=== PATIENT | female | born 1940 | race Caucasian/White ===

== ENCOUNTER 2016-10-25 15:30 | Inpatient (IN) | payer MEDICARE, OTHER ==
[2016-10-25 18:18] VITALS: BMI 71.1
[2016-10-25] MEDS ORDERED: ONDANSETRON HCL 4 MG TAB.RAPDIS PO PRN (18:38)
--- NOTE | 2016-10-25 18:46 | History and Physical Report ---
History of Present Illnes - History of Present Illness Reason for Visit: Peritonitis/sigmoid colectomy History of Present Illness: This michael a 76 year old female who presented to the ER on 09/29/16 at [facility] with a perforated sigmoid diverticulum with associated abcess formation necessitating a sigmoid colectomy and right oophorectomy due to abcess involving the right tube and ovary. Irrigation was performed, and a diverting colostomy was placed by Dr. Charles. Her ostomy is functioning well currently and she is becoming more and more comfortable with it. She did have a midline dehiscence which is being treated with daily packing. Her pain is well controlled currently. - Past Medical History Cardiac: denies: AFIB, CAD Pulmonary: denies: Asthma, Bronchitis COOK FAST FOOD: denies: Carpal Tunnel Syndrome Gastrointestinal: Other (recent sigmoid colectomy for diverticular rupture). denies: Constipation Heme/Onc: denies: Anemia NOS Hepatobiliary: denies: Cirrhosis Psych: Depression. denies: Anxiety Rheumatologic: denies: Fibromyalgia Infectious Disease: denies: Bacterial vaginosis ENT: denies: Sinusitis Renal/: denies: Chronic renal insuff Endocrine: denies: Diabetes Dermatology: denies: Eczema - Past Surgical History Past Surgical History: Other (Diverting colostomy 09/29/16, ) - Past Social History Smoke: No Alcohol: None Drugs: None Lives: With Family Domestic Violence: Negative - Health Maintenance Health Maintenance: Cholesterol Influenza Vaccine: Current for this Influenza Season Pneumonia Vaccine: Yes Resuscitation Status: Resusciation Status Resuscitation Status Full Code Review of Systems - Review of Systems Constitutional: negative: Fever, Chills Eyes: negative: pain ENT: negative: Ear Pain Respiratory: negative: Cough, Dry Cardiovascular: negative: Chest Pain Gastrointestinal: negative: Nausea, Vomiting Genitourinary: negative: Dysuria Musculoskeletal: negative: Neck Pain, Shoulder Pain, Foot Pain Skin: negative: Rash Neurological: Weakness, Incoordination. negative: Confusion - Medications/Allergies Current Inpatient Medications: Current Inpatient Medications Acetaminophen (Tylenol) 650 mg PO Q4H PRN PRN Reason: Fever >101 Albuterol/Ipratropium (Duoneb) 3 ml NEB QID [facility] Enoxaparin Sodium (Lovenox) 30 mg SQ QD [facility] Stop: 11/07/16 19:01 Escitalopram Oxalate (Lexapro) 10 mg PO DAILY [facility] Megestrol Acetate (Megace) 40 mg PO DAILY [facility] Ondansetron HCl (Zofran Odt) 4 mg PO Q6H PRN PRN Reason: Nausea / Vomiting Pantoprazole Sodium (Protonix) 40 mg PO 0700 [facility] Simethicone (Gas-X) 80 mg PO QID [facility] Exam - Exam General: Alert (Pleasant alert 76 year old female who appears younger), Oriented to Person, Oriented to Place, Oriented to Time HEENT: Atraumatic, PERRLA Neck: No: Stridor, Rigidity Lungs: Clear to auscultation, Normal air movement, Speaks full Sentences Cardiovascular: Regular rate, Normal S1, Normal S2 Murmur: No: Systolic Murmur Murmur Location: No: [place] Abdomen: Normal bowel sounds, Soft, No tenderness, Other (Diverting colostomy is noted. It appears to be functioning well. Midline incisional dehiscence is noted and packed) Genitourinary: No: Right Inguinal Hernia Male Genitourinary: No: Scrotal Edema Female Genitourinary: No: Prolapse Integumentary: Normal, [place], Warm Extremities: No clubbing, No cyanosis Neurological: Normal gait, Normal speech Psych/Mental Status: Mental status NL Assessment/Plan - Assessment/Plan (1) Abdominal abscess Status: Acute Current Visit: Yes Assessment: S/P colostomy formation (2) Colostomy care Status: Acute Current Visit: Yes Assessment: Colostomy teaching (3) Weakness Status: Acute Current Visit: Yes Assessment: PT/OT consults VTE Assessment - RISK FACTOR SCORE VTE RISK FACTOR SCORES: AGE OVER 60 YEARS, ANTICIPATED BED CONFINEMENT OR IMMOBILIZATION > 24 HOURS - RISK VTE MODERATE RISK: SCORE OF 2 (RISK PROXIMAL DVT 2-4%) PROPHYAXIS NEEDED (on lovenox/MARGARITA hose)
[2016-10-25] MEDS: ENOXAPARIN SODIUM 30 MG/0.3 ML DISP.SYRIN SQ SCH (21:36)
[2016-10-25] MEDS: SIMETHICONE 80 MG TAB.CHEW PO SCH (21:36)
[2016-10-25] MEDS: IPRATROPIUM/ALBUTEROL SULFATE 3 ML AMPUL.NEB NEB SCH (23:06)
[2016-10-25] MEDS: ACETAMINOPHEN 325 MG TABLET PO PRN (23:07)
[2016-10-26] MEDS: PANTOPRAZOLE SODIUM 40 MG TABLET PO SCH (06:00)
[2016-10-26 07:04] LABS: MEAN CORPUSCULAR HEMOGLOBIN 28.4 pg (28.0-34.0)
[2016-10-26 07:22] LABS: eGFR (African) > 60; eGFR (Non-African) > 60
[2016-10-26] MEDS: ESCITALOPRAM OXALATE 10 MG TABLET PO SCH (08:40)
[2016-10-26] MEDS: SIMETHICONE 80 MG TAB.CHEW PO SCH ×5 (08:41→20:50)
[2016-10-26] MEDS: IPRATROPIUM/ALBUTEROL SULFATE 3 ML AMPUL.NEB NEB SCH ×4 (09:08→20:39)
[2016-10-26] MEDS: MEGESTROL ACETATE 40 MG/ML PO SCH (16:35)
[2016-10-26] MEDS: ENOXAPARIN SODIUM 30 MG/0.3 ML DISP.SYRIN SQ SCH (18:10)
[2016-10-26] MEDS: ACETAMINOPHEN 325 MG TABLET PO PRN (20:51)
[2016-10-27] MEDS: PANTOPRAZOLE SODIUM 40 MG TABLET PO SCH (06:49)
[2016-10-27] MEDS: SIMETHICONE 80 MG TAB.CHEW PO SCH ×4 (09:02→20:56)
[2016-10-27] MEDS: ESCITALOPRAM OXALATE 10 MG TABLET PO SCH (09:03)
[2016-10-27] MEDS: MEGESTROL ACETATE 40 MG/ML PO SCH (09:09)
[2016-10-27] MEDS: IPRATROPIUM/ALBUTEROL SULFATE 3 ML AMPUL.NEB NEB SCH ×4 (09:15→22:11)
[2016-10-27] MEDS: ENOXAPARIN SODIUM 30 MG/0.3 ML DISP.SYRIN SQ SCH (18:35)
[2016-10-28] MEDS: PANTOPRAZOLE SODIUM 40 MG TABLET PO SCH (05:53)
[2016-10-28] MEDS: IPRATROPIUM/ALBUTEROL SULFATE 3 ML AMPUL.NEB NEB SCH ×4 (08:41→22:08)
[2016-10-28] MEDS: SIMETHICONE 80 MG TAB.CHEW PO SCH ×4 (08:50→21:33)
[2016-10-28] MEDS: MEGESTROL ACETATE 40 MG/ML PO SCH (08:51)
[2016-10-28] MEDS: ESCITALOPRAM OXALATE 10 MG TABLET PO SCH (08:51)
[2016-10-28] MEDS: ENOXAPARIN SODIUM 30 MG/0.3 ML DISP.SYRIN SQ SCH (18:22)
[2016-10-29] MEDS: PANTOPRAZOLE SODIUM 40 MG TABLET PO SCH (05:52)
[2016-10-29] MEDS: ESCITALOPRAM OXALATE 10 MG TABLET PO SCH (08:42)
[2016-10-29] MEDS: SIMETHICONE 80 MG TAB.CHEW PO SCH ×4 (08:42→20:20)
[2016-10-29] MEDS: MEGESTROL ACETATE 40 MG/ML PO SCH (08:42)
[2016-10-29] MEDS: IPRATROPIUM/ALBUTEROL SULFATE 3 ML AMPUL.NEB NEB SCH ×4 (09:01→21:06)
[2016-10-29] MEDS ORDERED: SIMETHICONE 80 MG TAB.CHEW ONE (16:20)
[2016-10-29] MEDS ORDERED: ENOXAPARIN SODIUM 30 MG/0.3 ML DISP.SYRIN SQ ONE (16:20)
[2016-10-29] MEDS ORDERED: IPRATROPIUM/ALBUTEROL SULFATE 3 ML AMPUL.NEB NEB ONE (16:21)
[2016-10-29] MEDS: ENOXAPARIN SODIUM 30 MG/0.3 ML DISP.SYRIN SQ SCH (18:36)
[2016-10-30] MEDS: PANTOPRAZOLE SODIUM 40 MG TABLET PO SCH (06:26)
[2016-10-30] MEDS: IPRATROPIUM/ALBUTEROL SULFATE 3 ML AMPUL.NEB NEB SCH ×4 (08:41→21:32)
[2016-10-30] MEDS: ESCITALOPRAM OXALATE 10 MG TABLET PO SCH (09:05)
[2016-10-30] MEDS: MEGESTROL ACETATE 40 MG/ML PO SCH (09:05)
[2016-10-30] MEDS: SIMETHICONE 80 MG TAB.CHEW PO SCH ×4 (09:05→19:57)
[2016-10-30] MEDS: ENOXAPARIN SODIUM 30 MG/0.3 ML DISP.SYRIN SQ SCH (18:15)
[2016-10-30] MEDS ORDERED: IPRATROPIUM/ALBUTEROL SULFATE 3 ML AMPUL.NEB NEB PRN (21:31)
[2016-10-31] MEDS: PANTOPRAZOLE SODIUM 40 MG TABLET PO SCH (05:47)
[2016-10-31] MEDS: MEGESTROL ACETATE 40 MG/ML PO SCH (08:33)
[2016-10-31] MEDS: SIMETHICONE 80 MG TAB.CHEW PO SCH ×4 (08:33→21:00)
[2016-10-31] MEDS: ESCITALOPRAM OXALATE 10 MG TABLET PO SCH (08:33)
--- NOTE | 2016-10-31 15:51 | Inpatient Progress Note ---
Subjective - Required Recertification Statement I anticipate X number of days because-include discharge plan: 7 - Review of Systems Events since last encounter: Dora is doing very well with therapy. She says that she is more comfortable with her ostomy, and it seems to be functioning well, even with advancement to full diet. She is not needing any pain medication currently. General: Denies: Chills HEENT: Denies: Head Aches Pulmonary: Denies: Dyspnea, Cough Cardiovascular: Denies: Chest Pain Gastrointestinal: Denies: Nausea, Vomiting Genitourinary: Denies: Dysuria, Frequency Musculoskeletal: Denies: Neck Pain Neurological: Weakness. Denies: Change in Speech, Confusion Objective - Exam Vitals and I&O: Vital Signs Temp 100.1 F H 10/31/16 09:00 Pulse 84 10/31/16 09:00 Resp 16 10/31/16 09:00 BP 131/72 10/31/16 09:00 Pulse Ox 94 10/31/16 09:00 Intake & Output 10/30/16 10/31/16 10/31/16 23:59 11:59 23:59 Intake Total 960 360 Balance 960 360 Intake: Oral 960 360 Other: Voiding Method Toilet # Voids 1 2 General: Alert, Oriented to Person, Oriented to Place, Oriented to Time, No acute distress HEENT: Atraumatic, PERRLA, EOMI Neck: Supple, No JVD Lungs: Clear to auscultation, Normal air movement, Speaks full Sentences Cardiovascular: Regular rate, Normal S1, Normal S2 Abdomen: Normal bowel sounds, Other (ostomy is functioning well) Extremities: Other (2+ edema) Neurological: Normal speech, Strength Equal Bilat, Generalized Weakness ( improved). No: Right Sided Weakness, Left Sided Weakness Psych/Mental Status: Mental status NL - Results Results: Laboratory Results WBC 10.00 K/ul (4.00-12.00) 10/26/16 06:40 RBC 3.40 M/ul (3.90-5.20) L 10/26/16 06:40 Hgb 9.7 g/dL (12.0-16.0) L 10/26/16 06:40 Hct 30.4 % (34.5-46.5) L 10/26/16 06:40 MCV 89.4 fl (80.0-100.0) 10/26/16 06:40 MCH 28.4 pg (28.0-34.0) 10/26/16 06:40 MCHC 31.8 g/dL (30.0-36.0) 10/26/16 06:40 RDW 14.0 % (11.3-14.3) 10/26/16 06:40 Plt Count 599 K/mm3 (130-400) H 10/26/16 06:40 Sodium 139 mmol/L (136-145) 10/26/16 06:40 Potassium 4.1 mmol/L (3.5-5.0) 10/26/16 06:40 Chloride 105 mmol/L (98-110) 10/26/16 06:40 Carbon Dioxide 26 mmol/L (20-32) 10/26/16 06:40 BUN 12 mg/dL (10-26) 10/26/16 06:40 Creatinine 0.4 mg/dL (0.4-1.5) 10/26/16 06:40 Estimated Creat Clear 201 10/26/16 06:40 Est GFR ( Amer) > 60 (60-) 10/26/16 06:40 Est GFR (Non-Af Amer) > 60 (60-) 10/26/16 06:40 Glucose 106 mg/dL (70-99) H 10/26/16 06:40 Calcium 9.6 mg/dL (8.5-10.5) 10/26/16 06:40 Assessment/Plan - Assessment/Plan (1) Abdominal abscess Status: Acute Current Visit: Yes Assessment: s/p colostomy placement Plan: Functioning well (2) Colostomy care Status: Acute Current Visit: Yes Assessment: Improved (3) Weakness Status: Acute Current Visit: Yes Assessment: Improved with therapy Plan: Continue PT/OT
[2016-10-31] MEDS: ENOXAPARIN SODIUM 30 MG/0.3 ML DISP.SYRIN SQ SCH (18:37)
[2016-11-01] MEDS: PANTOPRAZOLE SODIUM 40 MG TABLET PO SCH (06:23)
[2016-11-01] MEDS: ESCITALOPRAM OXALATE 10 MG TABLET PO SCH (08:30)
[2016-11-01] MEDS: MEGESTROL ACETATE 40 MG/ML PO SCH (08:30)
[2016-11-01] MEDS: SIMETHICONE 80 MG TAB.CHEW PO SCH ×4 (08:30→20:33)
[2016-11-01] MEDS: ENOXAPARIN SODIUM 30 MG/0.3 ML DISP.SYRIN SQ SCH (18:33)
[2016-11-02] MEDS: PANTOPRAZOLE SODIUM 40 MG TABLET PO SCH (06:36)
[2016-11-02] MEDS: SIMETHICONE 80 MG TAB.CHEW PO SCH ×4 (09:21→20:06)
[2016-11-02] MEDS: ESCITALOPRAM OXALATE 10 MG TABLET PO SCH (09:21)
[2016-11-02] MEDS: MEGESTROL ACETATE 40 MG/ML PO SCH (09:22)
[2016-11-02] MEDS: ENOXAPARIN SODIUM 30 MG/0.3 ML DISP.SYRIN SQ SCH (19:14)
[2016-11-03] MEDS: PANTOPRAZOLE SODIUM 40 MG TABLET PO SCH (06:18)
[2016-11-03] MEDS: SIMETHICONE 80 MG TAB.CHEW PO SCH ×4 (08:27→19:29)
[2016-11-03] MEDS: MEGESTROL ACETATE 40 MG/ML PO SCH (08:27)
[2016-11-03] MEDS: ESCITALOPRAM OXALATE 10 MG TABLET PO SCH (08:27)
[2016-11-03] MEDS: ENOXAPARIN SODIUM 30 MG/0.3 ML DISP.SYRIN SQ SCH (18:13)
[2016-11-04] MEDS: PANTOPRAZOLE SODIUM 40 MG TABLET PO SCH (06:09)
[2016-11-04] MEDS: SIMETHICONE 80 MG TAB.CHEW PO SCH ×4 (08:50→20:10)
[2016-11-04] MEDS: ESCITALOPRAM OXALATE 10 MG TABLET PO SCH (08:50)
[2016-11-04] MEDS: MEGESTROL ACETATE 40 MG/ML PO SCH (08:50)
[2016-11-04] MEDS: ENOXAPARIN SODIUM 30 MG/0.3 ML DISP.SYRIN SQ SCH (18:26)
[2016-11-05] MEDS: PANTOPRAZOLE SODIUM 40 MG TABLET PO SCH (05:30)
[2016-11-05] MEDS: SIMETHICONE 80 MG TAB.CHEW PO SCH ×4 (08:45→20:57)
[2016-11-05] MEDS: ESCITALOPRAM OXALATE 10 MG TABLET PO SCH (08:46)
[2016-11-05] MEDS: MEGESTROL ACETATE 40 MG/ML PO SCH (08:46)
[2016-11-05] MEDS: ENOXAPARIN SODIUM 30 MG/0.3 ML DISP.SYRIN SQ SCH (19:25)
[2016-11-06] MEDS: PANTOPRAZOLE SODIUM 40 MG TABLET PO SCH (06:08)
[2016-11-06 07:09] LABS: MEAN CORPUSCULAR HEMOGLOBIN 26.5 pg (28.0-34.0)
[2016-11-06 07:30] LABS: eGFR (African) > 60; eGFR (Non-African) > 60
[2016-11-06] MEDS: SIMETHICONE 80 MG TAB.CHEW PO SCH ×4 (09:08→20:55)
[2016-11-06] MEDS: FUROSEMIDE 40 MG TABLET PO SCH (09:09)
[2016-11-06] MEDS: MEGESTROL ACETATE 40 MG/ML PO SCH (09:09)
[2016-11-06] MEDS: ESCITALOPRAM OXALATE 10 MG TABLET PO SCH (09:09)
[2016-11-06] MEDS: ENOXAPARIN SODIUM 30 MG/0.3 ML DISP.SYRIN SQ SCH (18:34)
[2016-11-07] MEDS: PANTOPRAZOLE SODIUM 40 MG TABLET PO SCH (06:19)
[2016-11-07] MEDS: ESCITALOPRAM OXALATE 10 MG TABLET PO SCH (09:00)
[2016-11-07] MEDS: SIMETHICONE 80 MG TAB.CHEW PO SCH (09:00)
[2016-11-07] MEDS: FUROSEMIDE 40 MG TABLET PO SCH (09:00)
[2016-11-07] MEDS: MEGESTROL ACETATE 40 MG/ML PO SCH (09:00)
[2016-11-07 09:38] VITALS: BP 158/73
--- NOTE | 2016-11-08 09:46 | Discharge Summary ---
DATE OF ADMISSION: October 25, 2016 DATE OF DISCHARGE: November 07, 2016 DIAGNOSES ON THIS HOSPITALIZATION: 1. Ruptured diverticulum with result in need for placement of a colostomy. 2. Colostomy care. 3. Anemia. 4. Weakness. SUMMARIZATION OF ADMISSION HISTORY AND PHYSICAL: This is a 76-year-old female who presented initially to her emergency department with abdominal pain. She was noted on CT to have a suspected ruptured viscus. As a result, she was transferred for surgical care to [facility]. She underwent a laparotomy with result in a colostomy formation. Her postoperative course was fairly unremarkable. She was then transferred to our facility for continued therapy. She was noted to be a little bit anemic on admission and we are continuing to follow her CBCs and will continue to do so at [facility]. She was discharged then to [facility] today on the following medications. MEDICATIONS ON DISCHARGE: 1. Tylenol 650 mg every 4 hours p.r.n. fever or pain. 2. Lexapro 10 mg daily. 3. Lasix 40 mg p.o. daily. 4. Megestrol acetate 40 mg p.o. daily. 5. Zofran ODT 4 mg p.o. every 6 hours p.r.n. nausea. 6. Pantoprazole 40 mg daily. 7. Simethicone 80 mg p.o. q.i.d. DISCHARGE INSTRUCTIONS: 1. We will check a CBC and a BMP tomorrow because I did start her on some Lasix a few days ago because of swelling in her legs. 2. Occupational therapy and physical therapy consults will be obtained at [facility]. LY
== END 2016-11-07 11:10 | DRG 603 ==
LOC: SOUTH 15:30
PROVIDERS: ADMIT Family Medicine; ATTEND Family Medicine
DX: L02.211 Cutaneous abscess of abdominal wall (principal); R53.1 Weakness; Z93.3 Colostomy status
CPT/HCPCS: 36415; 80048; 85027; 94640; 94760; J1650; A9270-GY

== ENCOUNTER 2017-03-07 07:58 | Day surgery (SDC) | payer MEDICARE, OTHER ==
--- NOTE | 2017-03-07 10:28 | Operative Note ---
SURGEON: Narinder Mattson MD ANESTHESIA: MAC anesthesia. ESTIMATED BLOOD LOSS: None. COMPLICATIONS: None. FINDINGS: Multiple sessile polyps, primarily on the right side, all completely removed. PREOPERATIVE DIAGNOSIS: Diverticulitis. POSTOPERATIVE DIAGNOSIS: Colon polyps. PROCEDURE PERFORMED: Colonoscopy through colostomy, as well as the anus, with polypectomies. INDICATIONS FOR PROCEDURE: This is a 76-year-old woman who had an emergent sigmoid colectomy with Cliff' s procedure for perforated diverticulitis. She now presents for a colonoscopy prior to ostomy takedown. DESCRIPTION OF PROCEDURE: Patient is brought to the endoscopy suite and placed in the supine position. MAC anesthesia was administered. The colonoscope was inserted through the end of sigmoid colostomy and passed easily to the cecum. The prep was good. The appendiceal orifice and ileocecal valve were identified. In the right colon, there was one 1.5 cm sessile polyp completely removed with a snare and a second smaller sessile polyp completely removed with a snare. There was an area of concern that almost appeared to be adenomatous but was not a discrete polyp. This was biopsied. At the hepatic flexure, there were 2 other small polyps both removed with a cold biopsy forceps. Then there was another sessile small polyp in the proximal transverse. This was also removed with a cold biopsy forceps. The colonoscope was then removed. There were no other polyps seen. The patient was then placed in the left lateral decubitus position and the colonoscope was inserted through the anus and up to the end of the rectal stump. There were no polyps or other lesions distally. The colonoscope was removed. The patient tolerated the procedure well. DISPOSITION: We will follow up her pathology. cc: Dr. Yasir MODI
== END 2017-03-07 10:00 ==
LOC: OPSURG 07:58
PROVIDERS: ATTEND Colon & Rectal Surgery
DX: K63.5 Polyp of colon (principal); K57.92 Diverticulitis of intestine, part unspecified, without perforation or abscess without bleeding
CPT/HCPCS: 44388; 45378; 88305; J2704; J7120; S1016